=== PATIENT | female | born 1930 | race Caucasian/White ===

== ENCOUNTER 2018-04-24 18:03 | Emergency (ER) | payer OTHER, MEDICARE ==
[~2018-04-24 18:03] MED LIST: ATENOLOL25 M1 PO; CHOLESTYRAMINE P4 GM PO; DOK100 M2 PO; ELIQUIS2.5 M1 PO; HYDROCHLOROTHIA25 M1 PO; SENNA8.6 M3 PO; VICODIN 5-3001 EACH PO
[2018-04-24 18:14] VITALS: BP 159/82
--- NOTE | 2018-04-24 18:36 | ED EAR COMPLAINT ---
History of Present Illness General Chief Complaint: Ear Complaints Stated Complaint: BIBA WITH FORGEIN OBJECT IN LT EAR Source: patient, EMS Exam Limitations: poor historian Vital Signs & Intake/Output Vital Signs & Intake/Output Vital Signs Date Time Temp Pulse Resp B/P B/P Pulse O2 O2 Flow FiO2 Mean Ox Delivery Rate 04/24 1830 Room Air 04/24 1814 97.0 88 18 159/82 96 Room Air Allergies Coded Allergies: codeine (Severe, COUGHING 06/18/16) tramadol (Severe, CHOKING 06/18/16) Reconcile Medications Apixaban (Eliquis) 2.5 MG TABLET 2.5 MG PO DAILY A FIB (Reported) Atenolol 25 MG TABLET 25 MG PO DAILY HIGH BLOOD PRESSURE (Reported) Cholestyramine (With Sugar) (Cholestyramine Packet) 4 GM POWD.PACK 4 GM PO DAILY HIGH CHOLESTEROL (Reported) Docusate Sodium (DOK) 100 MG CAPSULE 100 MG PO DAILY PRN constipation ( Reported) Hydrochlorothiazide 25 MG TABLET 25 MG PO DAILY HIGH BLOOD PRESSURE (Reported ) Hydrocodone/Acetaminophen (Vicodin 5-300 MG Tablet) 1 EACH TABLET 2 TAB PO Q4 PRN BACK PAIN Sennosides (Senna) 8.6 MG TABLET 8.6 MG PO DAILY PRN constipation (Reported) Triage Note: PT BIBA FROM [facility] WITH C/O LEFT EAR FULLNESS AND NOATAK x APPROX 2 WEEKS. PT STATES NO PAIN, BUT EXPERIENCED BLEEDING FROM SAME EAR 2-3 MONTHS AGO. EMS REPORTS THAT EAR WAS EXAMINED AT [facility] BY [employer] BUT UNCLEAR IF A FOREIGN OBJECT WAS VISUALIZED. VSS EN ROUTE Triage Nurses Notes Reviewed? yes Onset: Gradual Duration: constant Timing: recent history Injury Environment: home Severity: moderate Severity Numbers: 5 HPI: Patient is an 88-year-old female with a past medical history of Alzheimer's dementia hypertension GERD anxiety in which patient presents brought in by ambulance from [facility] in which history is limited due to dementia however W-10 indicates that the staff noted a left ear foreign object that would they were unable to take out. Patient denies any pain is stating that she has decreased muffled hearing sensation. Denies any trauma (Olivier Gomez) Past History Travel History Traveled to [facility] past 21 day No Medical History Any Pertinent Medical History? see below for history Neurological: NONE EENT: NONE Cardiovascular: AFIB, hypertension Respiratory: COPD Gastrointestinal: GERD, irritable bowel syndrome Hepatic: NONE Renal: kidney cancer s/p R nephrectomy Musculoskeletal: OSTEOARTHRITIS Psychiatric: anxiety Endocrine: NONE Blood Disorders: NONE Cancer(s): NONE History of MRSA: No History of VRE: No History of CDIFF: No Pneumonia Vaccine: 03/28/15 Surgical History Surgical History: appendectomy, cholecystectomy Psychosocial History Who do you live with Other (see notes) Services at Home Nursing What is your primary language Thai Tobacco Use: Quit <30 days ago Family History Hx Contributory? No (Olivier Gomez) Review of Systems Review of Systems Constitutional: Reports: no symptoms. EENTM: Reports: see HPI. Denies: ear discharge, ear pain, ear redness. Respiratory: Reports: no symptoms. Cardiovascular: Reports: no symptoms. GI: Reports: no symptoms. Genitourinary: Reports: no symptoms. Musculoskeletal: Reports: no symptoms. Skin: Reports: no symptoms. Neurological/Psychological: Reports: no symptoms. Hematologic/Endocrine: Reports: no symptoms. Immunologic/Allergic: Reports: no symptoms. All Other Systems: Reviewed and Negative (Olivier Gomez) Physical Exam Physical Exam General Appearance: no apparent distress, alert, comfortable Head: atraumatic Eyes: Bilateral: normal appearance. Ears: Right: canal normal, Tympanic normal. Nose: normal inspection Mouth/Throat: normal mouth inspection Neck: normal inspection Cardiovascular/Respiratory: regular rate/rhythm Neurologic/Psych: no motor/sensory deficits Skin: intact, normal color, warm/dry Comments: Left ear normal external anatomy nontender tragus, left external auditory canal noted dried blood with a plastic blue foreign body with no active bleeding and no visualized tympanic membrane (Olivier Gomez) Progress Differential Diagnoses I considered the following diagnoses in my evaluation of the patient: [Otitis media or otitis externa tympanic membrane rupture labyrinthitis form body to left ear] Plan of Care: Using visualization of light source and forceps I was able to remove the foreign body along with the dried blood around the external auditory canal the tympanic membrane was intact No active bleeding had occurred patient tolerated well Patient still complains of muffled hearing sensation however denies any pain W-10 indicated to begin Ciprodex and follow-up with ENT. DR PANDEY agrees with disposition plan Initial ED EKG: none (Olivier Gomez) Departure Departure Disposition: HOME OR SELF CARE Condition: Stable Clinical Impression Primary Impression: Foreign body in left ear Secondary Impressions: Otitis externa Referrals: Talib MICHEL,Melany Hurtado (PCP/Family) Additional Instructions: As discussed follow-up with ear nose and throat doctor begin the prescription of Ciprodex Departure Forms: Customer Survey General Discharge Information (Olivier Gomez) PA/MARRIAGE AND FAMILY COUNSELOR Co-Sign Statement Statement: ED Attending supervision documentation- [x] I saw and evaluated the patient. I have also reviewed all the pertinent lab results and diagnostic results. I agree with the findings and the plan of care as documented in the PA's/MARRIAGE AND FAMILY COUNSELOR's documentation. [] I have reviewed the ED Record and agree with the PA's/MARRIAGE AND FAMILY COUNSELOR's documentation. [] Additions or exceptions (if any) to the PAs/MARRIAGE AND FAMILY COUNSELOR's note and plan are summarized below: [] Left tympanic membrane intact but not fully visualized, she did have blood in the inferior aspect of the left external auditory canal. Ciprodex drops. ENT follow-up. (Morales Pandey DO)
== END 2018-04-24 19:15 ==
LOC: ERH 18:03
DX: T16.2XXA Foreign body in left ear, initial encounter (principal); H60.92 Unspecified otitis externa, left ear; Z87.891 Personal history of nicotine dependence